=== PATIENT | female | born 1975 | race Caucasian/White ===

== ENCOUNTER 2017-11-13 07:52 | Inpatient (IN) | payer OTHER ==
[2017-11-13] VITALS (17 sets, daily range): BP systolic 102–143; BP diastolic 59–81
[~2017-11-13] VITALS: Ht 167.6 cm; Wt 94.5 kg
[2017-11-13] MEDS ORDERED: PRENATAL TABLE1 EACH PO (08:36)
[2017-11-13] MEDS ORDERED: IRON325 M1 PO (08:36)
[2017-11-13 09:27] LABS: BASOPHIL (%) 0.3 % (0-1); EOSINOPHIL (%) 1.3 % (0-5); EOSINOPHIL COUNT 0.1 K/uL (0-0.3); HEMATOCRIT 29.8 % (36.0-46.0); HEMOGLOBIN 10.2 G/DL (11.9-15.5); IMMATURE GRANULOCYTE (%) 1.4 % (0.0-0.7); LYMPHOCYTE (%) 17.2 % (15-42); LYMPHOCYTE COUNT 1.8 K/uL (1.0-2.8); MCH 32.5 PG (29.0-34.0); MCHC 34.2 G/DL (30.0-36.0); MCV 94.9 FL (83-99); MONOCYTE (%) 6.2 % (3-12); MONOCYTE COUNT 0.6 K/uL (0-0.8); NEUTROPHIL (%) 73.6 % (45-76); NEUTROPHIL COUNT 7.5 K/uL (1.8-6.4); PLATELET COUNT 167 K/uL (156-360); RBC DIS.WIDTH-CV 13.3 % (11.8-14.6); RBC DIS.WIDTH-SD 46.2 % (39-53); RED BLOOD COUNT 3.14 M/uL (3.80-5.20); WHITE BLOOD COUNT 10.2 K/uL (4.1-10.2)
[2017-11-13] MEDS ORDERED: IBUPROFEN800 MG PO (17:36)
[2017-11-14 07:32] VITALS: BP 119/67
[2017-11-14 15:32] VITALS: BP 119/75
[2017-11-14 23:00] VITALS: BP 121/62
== END 2017-11-15 13:36 | disposition home or self-care (01) | DRG 775 ==
LOC: LDRP-OP 07:52 → 2WEST 07:53
PROVIDERS: Midwife
DX: O70.0 First degree perineal laceration during delivery (principal); O99.02 Anemia complicating childbirth; D50.9 Iron deficiency anemia, unspecified; O99.353 Diseases of the nervous system complicating pregnancy, third trimester; G43.909 Migraine, unspecified, not intractable, without status migrainosus; Z3A.39 39 weeks gestation of pregnancy; Z37.0 Single live birth
CPT/HCPCS: 85025; J0595